=== PATIENT | female | born 1980 | race Two or more races ===

== ENCOUNTER 2018-05-22 21:39 | Inpatient (IN) | payer OTHER ==
[~2018-05-22] VITALS: Ht 152.4 cm; Wt 99.8 kg
== END 2018-05-27 19:18 | disposition home or self-care (01) | DRG 153 ==
LOC: ER 21:39 → MEDJ 05-23 12:03 → SEC-K 05-23 13:22 → SURH 05-23 14:45
PROVIDERS: ADMIT Internal Medicine
PROC: 3E0F7GC Introduction of Other Therapeutic Substance into Respiratory Tract, Via Natural or Artificial Opening (ICD-10-PCS; principal; 2018-05-23)
PROC: BB24ZZZ Computerized Tomography (CT Scan) of Bilateral Lungs (ICD-10-PCS; 2018-05-23)
PROC: 8E0ZXY6 Isolation (ICD-10-PCS; 2018-05-23)
DX: J11.1 Influenza due to unidentified influenza virus with other respiratory manifestations (principal); R04.2 Hemoptysis; J16.8 Pneumonia due to other specified infectious organisms